=== PATIENT | male | born 1960 | race African-American/Black ===

== ENCOUNTER → 2016-10-06 | Outpatient (CLI) | payer OTHER ==
[2014-12-23 14:42] VITALS: BP 155/74
--- NOTE | 2016-10-06 11:13 | KCIC ---
PROCEDURE Complete abdominal ultrasound. HISTORY Abdominal pain. TECHNIQUE Real-time ultrasound imaging of the abdomen is performed. COMPARISON None. FINDINGS The liver measures 15.5 cm in length and is homogeneous in appearance. Portal flow is hepatopetal. The pancreas is not well seen. The gallbladder appears normal and no gallstones or gallbladder wall thickening is seen. No pericholecystic fluid is seen. No positive Torres's sign was elicited during transducer examination of the gallbladder. The extrahepatic bile duct measures 7 mm. This is upper limits of normal. The right kidney measures 11.2 cm in length and no hydronephrosis or perinephric fluid collection is seen. There is a cyst in the upper pole that measures up to 1.3 cm. There is a cyst in the lower pole that measures up to 1.3 cm. The left kidney measures 11.6 cm in length and no hydronephrosis or perinephric fluid collection is seen. There is a mostly exophytic hypoechoic mass in the upper pole of the left kidney measuring 2.7 x 2.5 x 2.8 cm. Color Doppler interrogation is negative. Finding could be a cyst but this is not definitive. The spleen measures 8.6 cm in length and is homogeneous in appearance. No focal aneurysmal dilatation of the abdominal aorta is seen. The IVC is unremarkable. No ascites is seen. IMPRESSION 1. There is an exophytic hypoechoic mass or complex cyst in the upper pole of the left kidney. Recommend further evaluation with multi phase CT or MR of the abdomen. 2. There are 2 right renal cysts. 3. No sonographic evidence of gallbladder disease. Electronically signed by: Francisco Vidales MD (Oct 06, 2016 11:11:57)
== END | disposition home or self-care (01) ==
LOC: KCIC US 09:47
DX: N28.1 Cyst of kidney, acquired (principal); R10.9 Unspecified abdominal pain
CPT/HCPCS: 76700